=== PATIENT | female | born 1960 | race Two or more races ===

== ENCOUNTER 2017-06-06 13:31 | Emergency (ER) | payer SELFPAY ==
[2017-06-06] MEDS ORDERED: MORPHINE SULFATE 10 MG/ML INJ IV ONE (14:13)
[2017-06-06] MEDS ORDERED: PROPOFOL INJ 200 MG/20 ML VIAL IV ONE ×2 (14:14→15:48)
--- NOTE | 2017-06-06 14:14 | ER Document Report ---
ED Extremity Problem, Upper - General Chief Complaint: Shoulder Pain Stated Complaint: FALL/RIGHT SHOULDER INJURY Time Seen by Provider: 06/06/17 14:05 Mode of Arrival: Ambulatory Information source: Patient TRAVEL OUTSIDE OF THE [place] IN LAST 30 DAYS: No - HPI Patient complains to provider of: Injury, Pain, Right, Shoulder Onset: Yesterday Recent injury: Yes Where: Home Quality of pain: Achy Severity of pain: Severe Pain Level: 5 Context: Fall Exacerbated by: Movement Relieved by: Nothing Similar symptoms previously: No Recently seen / treated by doctor: Yes Notes: Patient is a 56-year-old female sent from [facility] for right-sided dislocated shoulder, patient had a slip and fall yesterday evening while at home , falling on outstretched arm, x-rays at the urgent care center showed patient to have a dislocated shoulder so she was sent to the emergency room for reduction, she has no history of dislocation previously, denies injury or pain elsewhere, no other medical problems - Related Data Allergies/Adverse Reactions: No Known Allergies Allergy (Verified 06/06/17 13:38) Home Medications: Current Home Medications No Home Medications 06/06/17 [History] Past Medical History - General Information source: Patient - Social History Smoking Status: Unknown if Ever Smoked Chew tobacco use (# tins/day): No Frequency of alcohol use: None Drug Abuse: None Family History: Reviewed & Not Pertinent Renal/ Medical History: Denies: Hx Peritoneal Dialysis Surgical Hx: Negative - Immunizations Hx Diphtheria, Pertussis, Tetanus Vaccination: Yes Review of Systems - Review of Systems Constitutional: No symptoms reported EENT: No symptoms reported Cardiovascular: No symptoms reported Respiratory: No symptoms reported Gastrointestinal: No symptoms reported Genitourinary: No symptoms reported Female Genitourinary: No symptoms reported Musculoskeletal: See HPI Skin: No symptoms reported Hematologic/Lymphatic: No symptoms reported Neurological/Psychological: No symptoms reported -: Yes All other systems reviewed and negative Physical Exam - Vital signs Vitals: Temp Pulse Resp BP Pulse Ox 98.6 F 73 18 165/73 H 98 06/06/17 13:37 06/06/17 13:37 06/06/17 13:37 06/06/17 13:37 06/06/17 13:37 Interpretation: Normal - General General appearance: Appears well, Alert - HEENT Head: Normocephalic, Atraumatic Eyes: Normal Pupils: PERRL - Respiratory Respiratory status: No respiratory distress Chest status: Nontender Breath sounds: Normal Chest palpation: Normal - Cardiovascular Rhythm: Regular Heart sounds: Normal auscultation Murmur: No - Abdominal Inspection: Normal Distension: No distension Bowel sounds: Normal Tenderness: Nontender Organomegaly: No organomegaly - Back Back: Normal, Nontender - Extremities General upper extremity: Normal color, Normal temperature General lower extremity: Normal inspection, Normal color, Normal ROM, Normal temperature, Normal weight bearing. No: Lara's sign Shoulder: Deformity, Dislocation, Other - Distal sensation and motor is intact with 2+ radial pulses and brisk capillary refill - Neurological Neuro grossly intact: Yes Cognition: Normal Orientation: AAOx4 [place] Coma Scale Eye Opening: Spontaneous Trip Coma Scale Verbal: Oriented [place] Coma Scale Motor: Obeys Commands Trip Coma Scale Total: 15 Speech: Normal Motor strength normal: LUE, RUE, LLE, RLE Sensory: Normal - Psychological Associated symptoms: Normal affect, Normal mood - Skin Skin Temperature: Warm Skin Moisture: Dry Skin Color: Normal Course - Re-evaluation Re-evalutation: 06/06/17 19:07 Patient's right-sided dislocated shoulder was reduced using procedural sedation , she was placed in a shoulder immobilizer and given information for follow-up, advised to apply ice, elevate, take Motrin 600 mg 3 times a day, follow-up with orthopedics within the next 2-3 days or return if symptoms worsen, patient and family members at bedside acknowledge understanding and agreement with this plan - Vital Signs Vital signs: Temp Pulse Resp BP Pulse Ox 98.6 F 73 16 159/86 H 97 06/06/17 13:37 06/06/17 16:03 06/06/17 16:03 06/06/17 16:03 06/06/17 16:03 - Diagnostic Test Radiology reviewed: Image reviewed, Reports reviewed Procedures - Conscious Sedation Conscious sedation Time started: 15:00 Time completed: 15:36 Consent obtained: Yes Indication: Right shoulder dislocation Normal healthy pt.: P1. - ASA Classification Airway Evaluation: Normal anatomy Mallampati Classification: Class 2 Used during procedure: Suction available, IV access obtained, Pulse ox on pt., classroom monitor on pt. Medications administered: Diprivan Reversal agents: None I personally performed/intraservice time: Sedation, Procedure, 31-45 min Complications: No - Immobilization Right Shoulder Time completed: 15:20 Pre-Proc Neuro Vasc Exam: Normal Immobilizer type: Shoulder immobilizer Performed by: Provider Post-Proc Neuro Vasc Exam: Normal Alignment checked and good: Yes - Joint Reduction/Fracture Care Right Shoulder Time completed: 05:20 Consent obtained: Yes Conscious sedation: Yes Pre-procedure NV exam: Yes Manipulation comment: Gentle traction and external rotation Post-procedure NV exam: Yes Post-reduction x-ray: Joint reduced Reduction attempts: 3 Complications: No Discharge - Discharge Clinical Impression: Dislocation of right shoulder joint Qualifiers: Encounter type: initial encounter Qualified Code(s): S43.004A - Unspecified dislocation of right shoulder joint, initial encounter Condition: Stable Disposition: HOME, SELF-CARE Instructions: Shoulder Dislocation ([facility]), Sling as Treatment ([facility]) Additional Instructions: Follow up with your primary care provider and an orthopedic surgeon in one to 2 days. Return to the emergency room immediately if symptoms worsen or any additional concerns. Ice and elevate the affected extremity. Forms: Return to Work Referrals: TRAV BEE MD [ACTIVE STAFF] - Follow up as needed
--- NOTE | 2017-06-06 15:54 | RADIOLOGY REPORT (SQ) ---
EXAM DESCRIPTION: SHOULDER RIGHT 2 OR MORE VIEWS COMPLETED DATE/TIME: 06/06/2017 3:41 pm REASON FOR STUDY: reduction COMPARISON: None. NUMBER OF VIEWS: One view. TECHNIQUE: A single anterior image acquired of the right shoulder. LIMITATIONS: None. FINDINGS: A single anterior image of the right shoulder marked postreduction shows no fracture or di slocation. IMPRESSION: Postreduction image of the right shoulder as described. TECHNICAL DOCUMENTATION: JOB ID: [id number] [employer] All Rights Reserved
[2017-06-06 16:03] VITALS: BP 159/86
== END 2017-06-06 16:18 | disposition home or self-care (01) ==
LOC: ER 13:31
PROC: 0RSJXZZ Reposition Right Shoulder Joint, External Approach (ICD-10-PCS; principal; 2017-06-06)
DX: S43.004A Unspecified dislocation of right shoulder joint, initial encounter (principal); W01.0XXA Fall on same level from slipping, tripping and stumbling without subsequent striking against object, initial encounter; Y92.039 Unspecified place in apartment as the place of occurrence of the external cause
CPT/HCPCS: 99283; 99153; 99152; 96374; 73030; 23650; L3650; J2270; J2704

== ENCOUNTER 2017-07-24 08:13 | Day surgery (SDC) | payer SELFPAY ==
[2017-07-18 09:26] LABS: ABSOLUTE EOSINOPHILS # (AUTO) 0.2 10^3/uL (0.0-0.6); ABSOLUTE LYMPHOCYTES (AUTO) 2.7 10^3/uL (0.5-4.7); ABSOLUTE MONOCYTES (AUTO) 0.5 10^3/uL (0.1-1.4); ABSOLUTE NEUT (AUTO) 3.9 10^3/uL (1.7-8.2); BASOPHILS % (AUTO) 0.5 % (0-2); EOSINOPHILS % (AUTO) 2.2 % (0-6); HEMATOCRIT 38.8 % (36.0-47.0); HEMOGLOBIN 13.3 g/dL (12.0-15.5); HGB HCT DIFFERENCE 1.1; LYMPHOCYTES % (AUTO) 37.1 % (13-45); MEAN CORPUSCULAR HEMOGLOBIN 28.9 pg (27.0-33.4); MEAN CORPUSCULAR HGB CONC 34.4 g/dL (32.0-36.0); MEAN CORPUSCULAR VOLUME 84 fl (80-97); MONOCYTES % (AUTO) 6.8 % (3-13); RED BLOOD COUNT 4.62 10^6/uL (3.72-5.28); SEGMENTED NEUTROPHILS % (AUTO) 53.4 % (42-78); WHITE BLOOD COUNT 7.3 10^3/uL (4.0-10.5)
[2017-07-18 09:31] LABS: APPEARANCE,URINE CLEAR; BILIRUBIN,URINE NEGATIVE (NEGATIVE); GLUCOSE, URINE NEGATIVE (NEGATIVE); KETONES,URINE NEGATIVE (NEGATIVE); LEUKOCYTE ESTERASE,URINE NEGATIVE (NEGATIVE); NITRITE,URINE NEGATIVE (NEGATIVE); PROTEIN,URINE NEGATIVE (NEGATIVE); UROBILINOGEN,URINE NEGATIVE mg/dL (<2.0)
[2017-07-18 09:44] LABS: ANION GAP 12 (5-19); BLOOD UREA NITROGEN 15 mg/dL (7-20); CALCIUM 10.2 mg/dL (8.4-10.2); CARBON DIOXIDE 28 mmol/L (22-30); CHLORIDE 103 mmol/L (98-107); CREATININE RESULT 0.58 mg/dL (0.52-1.25); GLUCOSE 96 mg/dL (75-110); POTASSIUM 4.9 mmol/L (3.6-5.0); SODIUM 143.3 mmol/L (137-145)
--- NOTE | 2017-07-18 13:21 | EKG REPORT ---
SEVERITY:- NORMAL ECG - SINUS RHYTHM : Confirmed by: Nelson Pepper MD 18-Jul-2017 13:19:42
[~2017-07-24 08:13] MED LIST: BUPIVACAINE HCL 0.5 % INJ/PF 30 ML SDV ONE; CEFAZOLIN 2 GM/D5W RTU 2 GM/50 ML RTUPB IV PRN; DEXAMETHASONE SOD PHOSPHATE INJ 4 MG/1 ML VIAL ONE; EPINEPHRINE INJ/PF 1 MG/1 ML AMPULE ONE; GLYCOPYRROLATE INJ 0.4 MG/2 ML VIAL ONE; LACTATED RINGERS 1000 ML IV PRN; LIDOCAINE 0.5% INJ-PF (5 MG/ML) 50 ML SDV SUBCUT PRN; LIDOCAINE 2% INJ-PF (20 MG/ML) 10 ML AMPUL ONE; ONDANSETRON HCL INJ/PF 4 MG/2 ML SDV ONE; SUCCINYLCHOLINE CHLORIDE INJ 200 MG/10 ML VIAL ONE; VECURONIUM BROMIDE INJ 10 MG VIAL IV ONE
[2017-07-24] MEDS ORDERED: FENTANYL CITRATE INJ/PF 250 MCG/5 ML AMPULE ONE (11:05)
[2017-07-24] MEDS ORDERED: EPHEDRINE SULFATE INJ 50 MG/1 ML AMPULE ONE (11:06)
[2017-07-24] MEDS ORDERED: FENTANYL CITRATE INJ/PF 100 MCG/2 ML AMPUL ONE (11:06)
[2017-07-24] MEDS ORDERED: MIDAZOLAM 2 MG/2 ML INJ ONE (11:06)
[2017-07-24] MEDS ORDERED: IBUPROFEN INJ 800 MG/8 ML VIAL IV ONE (11:07)
[2017-07-24] MEDS ORDERED: MORPHINE SULFATE 10 MG/ML INJ ONE (11:07)
[2017-07-24] MEDS ORDERED: PROPOFOL INJ 200 MG/20 ML VIAL IV ONE (11:07)
[2017-07-24] MEDS ORDERED: MEPERIDINE HCL/PF INJ 25 MG/1 ML DISP.SYRIN IV PRN (13:15)
[2017-07-24] MEDS ORDERED: FENTANYL CITRATE INJ/PF 100 MCG/2 ML AMPUL IV PRN ×3 (13:15)
[2017-07-24] MEDS ORDERED: DIPHENHYDRAMINE HCL 50 MG/ML VIAL IV PRN (13:15)
[2017-07-24] MEDS ORDERED: PROMETHAZINE HCL INJ 25 MG/1 ML VIAL IV PRN (13:15)
[2017-07-24] MEDS ORDERED: MORPHINE SULFATE 10 MG/ML INJ IV PRN (13:15)
[2017-07-24] MEDS: FENTANYL CITRATE INJ/PF 100 MCG/2 ML AMPUL ONE ×2 (15:05→15:15)
--- NOTE | 2017-07-24 15:23 | Operative Report ---
Operative Report DATE OF SURGERY: 07/24/17 PREOPERATIVE DIAGNOSIS: Right rotator cuff tear POSTOPERATIVE DIAGNOSIS: Same plus partial tear of the anchor of the long head of the biceps tendon OPERATION: Right shoulder arthroscopic rotator cuff repair and biceps tenodesis SURGEON: DEON SANFORD ANESTHESIA: GA TISSUE REMOVED OR ALTERED: None COMPLICATIONS: None ESTIMATED BLOOD LOSS: 20 mL INTRAOPERATIVE FINDINGS: As above PROCEDURE: IMPLANTS: [Arthrex ] DESCRIPTION OF PROCEDURE: Patient was brought to the operating room placed in supine position. After successfully induced and intubated the patient patient was placed in the beachchair position the head and endotracheal tube was secured appropriately. The right shoulder was prepped and draped in a normal surgical fashion. A timeout was done identifying the right shoulder as the correct site. After inflating the glenohumeral joint with sterile saline solution an 11 blade was used to establish the posterior portal. The arthroscope was introduced and return of fluid was seen showing that we successfully penetrated the glenohumeral joint. With the use of spinal needle we're able to konrad the anterior portal and using an 11 blade able to establish anterior portal. A cannula was introduced through the anterior portal. At this point diagnostic scope was done. At this point I noticed the patient had a partial tear of the long head of the biceps with some degenerative changes of the superior labrum. He has a full-thickness tear of the rotator cuff with retraction of the supraspinatus but some mobility of the infraspinatus. I proceeded to do a biceps tenotomy using arthroscopic scissors. Shaver was used to debride the stump of the superior labrum. A lateral portal was established 11 blade. 4.0mm shaver was introduced and was used to prepare the tear and the frontal bone for preparation of anchor placement. Once I was satisfied with the preparation I then redirected my scope into the subacromial space. Extensive bursectomy was done and significant bleeding was needed to be controlled before radio frequency ablative was used for most of the resection of the bursa. The full-thickness tear of the infraspinatus and supraspinous was well identified and with retractors and was able to pull the infraspinatus back onto the humerus. Supraspinatus will come away to the articular margin but was under a lot of tension. I worked extensively to release some of the scar tissue to allow for more mobility. I then proceeded to attempt to repair. A percutaneous incision was then just adjacent to the acromion on the lateral aspect. Through this percutaneous hole the awl was used to prepare the hole for an anchor. Calera was percutaneously sent flushed with the bone just adjacent to the articular margin.Same steps were taken for placement of our second anchor more posteriorly. Sutures were passed through the anterior portal for proper suture management. With the use of the scorpion and I proceeded to pass the sutures through the rotator cuff tendon with proper suture management was able to pass the strands either through percutaneous hole or the anterior portal. Once I was satisfied with placement of all my sutures I then proceeded to do my arthroscopic knots. At this point the strands were used to do our lateral row. Bicomposite show out was used and the lateral aspect of the humerus was then cleaned off with a shaver and electrocautery. Once identified once I was replacement I proceeded to use my awl to do my hole. This this point the sutures were adequately tensioned and subluxed for inserted and secured securing and increasing the footprint of the rotator cuff repair. Remaining strands were cut with the arthroscopic cutter. The biceps which had been tenotomized was then secured with a FiberWire. I used the [employer] fast pass instrument to capture the biceps and passed stitches through it. I incorporated the biceps into the rotator cuff repair and did arthroscopic knots to secure it to the lateral portion of the repair. Final pictures were taking showing my repair. At this point fluid from the shoulder was removed camera and instruments were all removed. I proceeded to close my portal sites with 3-0 nylon. Xeroform 4 x 4 dressing followed by ABDs pads and Medipore tape was applied. Patient was placed in a sling and returned to supine position where he was successfully extubated and taken to PACU in stable condition.
[2017-07-24] MEDS ORDERED: OXYCODONE-ACETAMINOPHEN 5-325 MG TABLET PO PRN ×2 (15:24)
--- NOTE | 2017-07-24 15:25 | PDOC DISCHARGE SUMMARY ---
Discharge Summary (SDC) - Discharge Final Diagnosis: Status post right shoulder arthroscopic rotator cuff repair and biceps tenodesis Date of Surgery: 07/24/17 Discharge Date: 07/24/17 Condition: Good Treatment or Instructions: Patient is instructed to follow up in 10-14 days. Patient instructed to remove dressing in 4 days then can shower and apply Band- Aids as needed. Patient to wear sling for comfort but okay to remove for shower and pendulum exercises. Pendulum exercises are instructed to be done 3 times a day ideally with breakfast, lunch, dinners and showers. Patient instructed to call if there is any signs of redness or drainage fevers or chills. Prescriptions: Oxycodone HCl/Acetaminophen [Percocet 5-325 mg Tablet] 1 - 2 tab PO ASDIR PRN # 60 tablet PRN Reason: Discharge Diet: As Tolerated Respiratory Treatments at Home: Deep Breathing/Coughing Discharge Activity: No Lifting/Push/Pulling, Walk Frequently Home Care Assistance: None Needed Report the Following to Your Physician Immediately: Shortness of Breath, Vomiting, Fever over 101 Degrees, Unusual Bleeding, Redness, Swelling, Warmth, Drainage-Yellow, Drainage-Estrella, Drainage-Green, Drainage-Foul Smelling
[2017-07-24 17:33] VITALS: BP 165/80
== END 2017-07-24 17:20 | disposition home or self-care (01) ==
LOC: OROUT 08:13
PROVIDERS: ATTEND Orthopaedic Surgery
PROC: 0LS14ZZ Reposition Right Shoulder Tendon, Percutaneous Endoscopic Approach (ICD-10-PCS; 2017-07-24)
PROC: 0LM14ZZ Reattachment of Right Shoulder Tendon, Percutaneous Endoscopic Approach (ICD-10-PCS; principal; 2017-07-24 10:00)
DX: M75.121 Complete rotator cuff tear or rupture of right shoulder, not specified as traumatic (principal); S46.111A Strain of muscle, fascia and tendon of long head of biceps, right arm, initial encounter; X58.XXXA Exposure to other specified factors, initial encounter; E66.9 Obesity, unspecified; Z68.35 Body mass index [BMI] 35.0-35.9, adult
CPT/HCPCS: 93005; 36415; 85025; 80048; 81001; 93010; 29827; 29828; C1713; J2250; J1100; J0171; J3010 ×2; J3490 ×2; J2270; J0330; J2405; J2704; J0690; 1630; J1741